=== PATIENT | male | born 1965 | race Asian ===

== ENCOUNTER → 2024-02-12 06:41 | Day surgery (SDC) | payer OTHER, SELFPAY ==
[2024-02-12 11:48] LABS: Glucose - Point of Care 107 mg/dl (70-99)
== END ==
LOC: GI 06:41
PROVIDERS: ATTENDING PHYSICIAN Internal Medicine Gastroenterology
DX: Z12.11 Encounter for screening for malignant neoplasm of colon (principal); Z86.010 Personal history of colon polyps; K64.8 Other hemorrhoids; D12.5 Benign neoplasm of sigmoid colon
CPT/HCPCS: 45385; 88305; 82962

== ENCOUNTER → 2025-06-12 07:08 | Outpatient (REF) | payer OTHER, SELFPAY | LOC: PAVMRI 07:08 | PROVIDERS: ATTENDING PHYSICIAN Family Medicine | DX: R20.0 Anesthesia of skin (principal); H53.9 Unspecified visual disturbance | CPT/HCPCS: 70551 ==

== ENCOUNTER → 2025-06-23 14:22 | Outpatient (REF) | payer OTHER, SELFPAY | LOC: DHSLP 14:22 | PROVIDERS: ATTENDING PHYSICIAN Family Medicine | DX: G47.33 Obstructive sleep apnea (adult) (pediatric) (principal); R09.02 Hypoxemia | CPT/HCPCS: 95800 ==